=== PATIENT | male | born 1955 | race Hispanic/Latino ===

== ENCOUNTER 2016-11-06 10:33 | Emergency (ER) | payer MEDICAID ==
[2016-11-06 10:50] VITALS: BP 152/102
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
--- NOTE | 2016-11-10 00:42 | ED Elopement Review ---
ED Pt Elopement review - Call Back decision Pt Call Back Decision: Pt to F/U with PMD
== END 2016-11-06 11:00 | disposition left against medical advice (07) ==
LOC: ED 10:33
DX: S01.111A Laceration without foreign body of right eyelid and periocular area, initial encounter (principal); K21.9 Gastro-esophageal reflux disease without esophagitis; I10 Essential (primary) hypertension; F17.200 Nicotine dependence, unspecified, uncomplicated; Z53.21 Procedure and treatment not carried out due to patient leaving prior to being seen by health care provider; Y04.8XXA Assault by other bodily force, initial encounter; Y93.89 Activity, other specified; Y99.9 Unspecified external cause status; Y92.89 Other specified places as the place of occurrence of the external cause
CPT/HCPCS: 70450; 72125

== ENCOUNTER 2020-02-22 14:22 | Outpatient (CLI) | payer MEDICAID | END 2020-02-22 14:23 | disposition home or self-care (01) | LOC: LAB 14:22 | PROVIDERS: ATTEND Surgery | DX: L02.211 Cutaneous abscess of abdominal wall (principal) | CPT/HCPCS: 87075; 87076; 87116; 87186 ==

== ENCOUNTER 2020-04-24 03:13 | Emergency (ER) | payer MEDICAID ==
--- NOTE | 2020-04-24 03:26 | Event Note ---
ED Screening Note Date of service: 04/24/20 Time: 03:22 ED Screening Note: Pt is a 64 y/o male with hx of polysubstance abuse who presents via for complaint of chest pain 07/22 sharp ,pt states ETHOH tonight, he denies SI or HI, he advises that he is going to rehab tomoorw. This initial assessment/diagnostic orders/clinical plan/treatment(s) is/are subject to change based on patients health status, clinical progression and re- assessment by fellow clinical providers in the ED. Further treatment and workup at subsequent clinical providers discretion. Patient/guardian urged not to elope from the ED as their condition may be serious if not clinically assessed and managed. Initial orders include: ETOH, CBC, CMP, UA, UDS, EKG Tropf. cxr.
--- NOTE | 2020-04-24 03:54 | XRay Report ---
CHEST 2 VIEWS INDICATION / CLINICAL INFORMATION: chest pain. COMPARISON: 12/26/12 FINDINGS: SUPPORT DEVICES: None. HEART / MEDIASTINUM: No significant abnormality. LUNGS / PLEURA: No significant pulmonary or pleural abnormality. No pneumothorax. ADDITIONAL FINDINGS: No significant additional findings. IMPRESSION: 1. No acute findings. Signer Name: Beryl Bennett MD Signed: 04/24/2020 3:50 AM Workstation Name: [email or web address] [id number]
[2020-04-24 03:57] LABS: Basophils % (Auto) 0.7 % (0.0-1.8); Eosinophils # (Auto) 0.1 K/mm3 (0.0-0.4); Eosinophils % (Auto) 0.7 % (0.0-4.3); Hematocrit 48.1 % (35.5-45.6); Hemoglobin 16.9 gm/dl (11.8-15.2); Lymphocytes # (Auto) 1.8 K/mm3 (1.2-5.4); Lymphocytes % (Auto) 25.2 % (13.4-35.0); Mean Corpuscular HGB Conc 35 % (32-34); Mean Corpuscular Volume 90 fl (84-94); Monocytes # (Auto) 0.8 K/mm3 (0.0-0.8); Monocytes % (Auto) 10.9 % (0.0-7.3); Platelet Count 151 K/mm3 (140-440); Red Blood Count 5.33 M/mm3 (3.65-5.03); Red Cell Distribution Width 12.8 % (13.2-15.2)
[2020-04-24 04:47] LABS: Alanine Aminotransferase 53 units/L (7-56); Albumin 4.5 g/dL (3.9-5); BUN/Creatinine Ratio 14; Blood Urea Nitrogen 15 mg/dL (9-20); Calcium 9.7 mg/dL (8.4-10.2); Hemolysis Index 47
--- NOTE | 2020-04-24 06:33 | Emergency Department Report ---
ED Chest Pain HPI - General Chief Complaint: Chest Pain Stated Complaint: CHEST PAIN Time Seen by Provider: 04/24/20 06:28 Source: patient Mode of arrival: Ambulatory Limitations: No Limitations - History of Present Illness Initial Comments: This is a 64-year-old male with history of polysubstance abuse. He admits to having chest pain while smoking meth 2 days ago. He does not report any chest pain after that. He does not have chest pain at the time of my encounter or his arrival in the emergency department. He admits that he is here mainly because he wants medical clearance for detox. I suspect homelessness as well. Patient appears a bit shaky on my encounter. However he is oriented x4 with speech coherent and without neurological deficits. He has no other supplemental complaints. He essentially just wants to go to detox. Patient has no known history of coronary artery disease. He states that he previously was [facility]ed [facility] MD Complaint: chest pain -: days(s) (Days ago only while smoking meth) Quality: other (Did not describe) Consistency: now resolved Improves With: nothing Worsens With: other (Substance abuse) re: denies: nausea, vomting, diaphoresis, dyspnea Other Symptoms: denies: cough, fever, syncope Treatments Prior to Arrival: none - Related Data Previous Rx's Medication Instructions Recorded Last Taken Type Triamterene/Hydrochlorothiazid 1 each PO DAILY #30 capsule 04/24/20 Unknown Rx [Triamterene-Hctz 37.5-25 mg Cp] Allergies Allergy/AdvReac Type Severity Reaction Status Date / Time codeine Allergy Intermediate Nausea Verified 08/30/15 12:10 Heart Score - HEART Score History: Slightly suspicious EKG: Normal Age: 45-65 Risk factors: 1-2 risk factors Troponin: < normal limit HEART Score: 2 - Critical Actions Critical Actions: 0-3 pts:0.9-1.7%risk of adverse cardiac event.Candidate for discharge ED Review of Systems ROS: Stated complaint: CHEST PAIN Other details as noted in HPI Constitutional: denies: chills, fever Eyes: denies: eye pain, vision change ENT: denies: ear pain, throat pain Respiratory: denies: cough, shortness of breath, wheezing Cardiovascular: as per HPI, chest pain. denies: palpitations Endocrine: no symptoms reported Gastrointestinal: denies: abdominal pain, nausea, diarrhea Genitourinary: denies: urgency, dysuria Musculoskeletal: denies: back pain, joint swelling, arthralgia Skin: denies: rash, lesions Neurological: denies: headache, weakness, paresthesias Psychiatric: denies: anxiety, depression Hematological/Lymphatic: denies: easy bleeding, easy bruising ED Past Medical Hx - Past Medical History Previous Medical History?: Yes Hx Hypertension: Yes (NO MEDS) Hx Heart Attack/AMI: No Hx GERD: Yes Hx Liver Disease: No Hx Renal Disease: No Hx Asthma: No Hx COPD: Yes (NO MEDS) Hx Tuberculosis: Yes ([place] IN WITH PO MEDS) Additional medical history: scoleosis - Surgical History Hx Appendectomy: Yes Additional Surgical History: double hernia repair - Social History Smoking Status: Current Every Day Smoker Substance Use Type: Alcohol - Medications Home Medications: Home Medications Medication Instructions Recorded Confirmed Last Taken Type Triamterene/Hydrochlorothiazid 1 each PO DAILY #30 capsule 04/24/20 Unknown Rx [Triamterene-Hctz 37.5-25 mg Cp] ED Physical Exam - General Limitations: No Limitations General appearance: alert, in no apparent distress - Head Head exam: Present: atraumatic, normocephalic - Eye Eye exam: Present: normal appearance. Absent: scleral icterus - ENT ENT exam: Present: mucous membranes moist - Neck Neck exam: Present: normal inspection - Respiratory Respiratory exam: Present: normal lung sounds bilaterally. Absent: respiratory distress - Cardiovascular Cardiovascular Exam: Present: regular rate, normal rhythm. Absent: systolic murmur, diastolic murmur, rubs, gallop - GI/Abdominal GI/Abdominal exam: Present: soft, normal bowel sounds. Absent: distended, tenderness, guarding, rebound - Rectal Rectal exam: Present: deferred - Extremities Exam Extremities exam: Present: normal inspection - Back Exam Back exam: Present: normal inspection - Neurological Exam Neurological exam: Present: alert, oriented X3, CN II-XII intact. Absent: motor sensory deficit - Psychiatric Psychiatric exam: Present: normal affect, normal mood - Skin Skin exam: Present: warm, dry, intact, normal color. Absent: rash ED Course Vital Signs 04/24/20 04/24/20 04/24/20 03:20 06:33 07:12 Temperature 98.4 F 98.0 F Pulse Rate 64 65 68 Respiratory 18 17 20 Rate Blood Pressure 176/98 Blood Pressure 163/97 [Left] O2 Sat by Pulse 98 98 95 Oximetry 04/24/20 08:00 Temperature Pulse Rate 58 L Respiratory 11 L Rate Blood Pressure 158/96 Blood Pressure [Left] O2 Sat by Pulse 99 Oximetry - Reevaluation(s) Reevaluation #1: Blood pressure remained elevated but not in the range of acute treatment. Patient will be given a prescription for Dyazide. He was borderline bradycardic with mostly in the 50s. There is no indications for acute hospitalization. I spoke to the mental health counselor. They stated that he should be directed to [facility] which is nearby. He is medically clear for detox program 04/24/20 09:00 04/24/20 09:01 Reevaluation #2: Patient's shakiness totally resolved with 1 mg of Ativan p.o. He has no supplemental complaints. He is appropriate for discharge. 04/24/20 09:07 SERGEY score - Sergey Score Age > 65: (0) No Aspirin use within the Past 7 Days: (0) No 3 or more CAD Risk Factors: (0) No 2 or more Angina events in past 24 hrs: (0) No Known CAD with more than 50% Stenosis: (0) No Elevated Cardiac Markers: (0) No ST Deviation Greater than 0.5mm: (0) No SERGEY Score: 0 ED Medical Decision Making - Lab Data Result diagrams: 04/24/20 03:34 04/24/20 03:34 Laboratory Results - last 24 hr 04/24/20 04/24/20 04/24/20 03:34 03:34 03:34 WBC 7.1 RBC 5.33 H Hgb 16.9 H Hct 48.1 H MCV 90 MCH 32 MCHC 35 H RDW 12.8 L Plt Count 151 Lymph % (Auto) 25.2 [place] % (Auto) 10.9 H Eos % (Auto) 0.7 Baso % (Auto) 0.7 Lymph # (Auto) 1.8 [place] # (Auto) 0.8 Eos # (Auto) 0.1 Baso # (Auto) 0.0 Seg Neutrophils % 62.5 Seg Neutrophils # 4.5 Sodium 142 Potassium 4.0 Chloride 101.4 Carbon Dioxide 30 Anion Gap 15 BUN 15 Creatinine 1.1 Estimated GFR > 60 BUN/Creatinine Ratio 14 Glucose 100 Calcium 9.7 Total Bilirubin 0.90 AST 61 H ALT 53 Alkaline Phosphatase 91 Troponin T < 0.010 Total Protein 7.5 Albumin 4.5 Albumin/Globulin Ratio 1.5 Salicylates < 0.3 L Acetaminophen Plasma/Serum Alcohol 04/24/20 04/24/20 03:34 04:29 WBC RBC Hgb Hct MCV MCH MCHC RDW Plt Count Lymph % (Auto) [place] % (Auto) Eos % (Auto) Baso % (Auto) Lymph # (Auto) [place] # (Auto) Eos # (Auto) Baso # (Auto) Seg Neutrophils % Seg Neutrophils # Sodium Potassium Chloride Carbon Dioxide Anion Gap BUN Creatinine Estimated GFR BUN/Creatinine Ratio Glucose Calcium Total Bilirubin AST ALT Alkaline Phosphatase Troponin T Total Protein Albumin Albumin/Globulin Ratio Salicylates Acetaminophen 5.0 L Plasma/Serum Alcohol < 0.01 - EKG Data -: EKG Interpreted by Pa EKG shows normal: sinus rhythm, axis, intervals, QRS complexes, ST-T waves Rate: normal - EKG Data Interpretation: nonspecific ST-T wave adrienne No evidence of lateral infarct contrary to computerized interpretation. 04/24/20 06:32 - Radiology Data Radiology results: report reviewed (No acute process) Critical care attestation.: If time is entered above; I have spent that time in minutes in the direct care of this critically ill patient, excluding procedure time. ED Disposition Clinical Impression: Polysubstance abuse, Medical clearance for psychiatric admission, Atypical chest pain Hypertension Qualifiers: Hypertension type: unspecified Qualified Code(s): I10 - Essential (primary) hypertension Disposition: DC- TO HOME OR SELFCARE Is pt being admited?: No Does the pt Need Aspirin: No Condition: Stable Instructions: Chest Pain (ED), Substance Use Disorder, Nonspecific Chest Pain, Adult, [id number], Hypertension (ED) Additional Instructions: Return to the emergency department any acute change or problem. You may think detox at [facility]. Telephone number and address provided. You are being medically appropriate for detox program. Prescriptions: Triamterene/Hydrochlorothiazid [Triamterene-Hctz 37.5-25 mg Cp] 1 each PO DAILY #30 capsule Referrals: PRIMARY CARE, [Primary Care Provider] - 3-5 Days Time of Disposition: 09:03
[2020-04-24] MEDS ORDERED: LORazepam 1 MG TAB PO ONE (07:42)
[2020-04-24 08:02] LABS: Creatine Kinase MB 4.1 ng/mL (0.0-4.0)
[2020-04-24 09:22] VITALS: BP 153/92
== END 2020-04-24 09:24 | disposition home or self-care (01) ==
LOC: ED 03:13
DX: F19.10 Other psychoactive substance abuse, uncomplicated (principal); R07.89 Other chest pain; I10 Essential (primary) hypertension; Z04.6 Encounter for general psychiatric examination, requested by authority; K21.9 Gastro-esophageal reflux disease without esophagitis; J44.9 Chronic obstructive pulmonary disease, unspecified; F17.200 Nicotine dependence, unspecified, uncomplicated; Z90.49 Acquired absence of other specified parts of digestive tract; Z98.890 Other specified postprocedural states; Z79.899 Other long term (current) drug therapy; Z88.8 Allergy status to other drugs, medicaments and biological substances
CPT/HCPCS: 36415; 71046; 80053; 80320; 82550; 82553; 84484; 85025; 93005; G0480

== ENCOUNTER 2020-05-02 22:42 | Emergency (ER) | payer MEDICAID ==
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
[2020-05-02 23:33] LABS: Basophils % (Auto) 0.5 % (0.0-1.8); Eosinophils # (Auto) 0.2 K/mm3 (0.0-0.4); Eosinophils % (Auto) 2.9 % (0.0-4.3); Hemoglobin 15.6 gm/dl (11.8-15.2); Lymphocytes # (Auto) 1.9 K/mm3 (1.2-5.4); Lymphocytes % (Auto) 34.9 % (13.4-35.0); Mean Corpuscular HGB Conc 35 % (32-34); Mean Corpuscular Volume 90 fl (84-94); Monocytes # (Auto) 0.7 K/mm3 (0.0-0.8); Monocytes % (Auto) 12.8 % (0.0-7.3); Platelet Count 131 K/mm3 (140-440); Red Blood Count 4.98 M/mm3 (3.65-5.03); Red Cell Distribution Width 13.1 % (13.2-15.2)
[2020-05-03 00:03] LABS: Bilirubin,Urine NEG (Negative); Blood,Urine NEG (Negative); Color,Urine Yellow (Yellow); Mucus,Urine FEW /HPF; Protein,Urine <15 mg/dL mg/dL (Negative); RBC,Urine < 1.0 /HPF (0.0-6.0); WBC,Urine < 1.0 /HPF (0.0-6.0)
[2020-05-03] MEDS ORDERED: cloNIDine 0.1 MG TAB PO ONE ×2 (00:03→00:20)
--- NOTE | 2020-05-03 00:07 | Emergency Department Report ---
ED Psych HPI - General Chief Complaint: Medical Clearance Stated Complaint: DETOX Time Seen by Provider: 05/02/20 23:07 Source: patient Mode of arrival: Ambulatory - History of Present Illness Initial Comments: 64-year-old male with a past medical history of hypertension and COPD noncompliant with medications once again presents to the hospital requesting detox. Patient states he drinks 342 ounce beers daily with last drink this morning and abuses methamphetamine with last use this a.m. Patient was sleeping in the waiting room and continues to appear very sleepy here but is arousable by voice and mild tactile stimulation. Patient does not have any physical complaints and denies suicidal homicidal ideation. As per medical record review patient was here on April 24 with complaints of chest pain and then subsequently admitted that he wanted detox from alcohol and meth at that time as well. He was provided outpatient resources but states he has not followed up. Patient states he has been off of his BP medication for least 1 week - Related Data Previous Rx's Medication Instructions Recorded Last Taken Type Triamterene/Hydrochlorothiazid 1 each PO DAILY #30 capsule 05/03/20 Unknown Rx [Triamterene-Hctz 37.5-25 mg Cp] chlordiazePOXIDE [Librium] 25 mg PO Q6H #20 capsule 05/03/20 Unknown Rx Allergies Allergy/AdvReac Type Severity Reaction Status Date / Time codeine Allergy Intermediate Nausea Verified 08/30/15 12:10 ED Review of Systems ROS: Stated complaint: DETOX Other details as noted in HPI Comment: All other systems reviewed and negative ED Past Medical Hx - Past Medical History Previous Medical History?: Yes Hx Hypertension: Yes (NO MEDS) Hx Heart Attack/AMI: No Hx GERD: Yes Hx Liver Disease: No Hx Renal Disease: No Hx Asthma: No Hx COPD: Yes (NO MEDS) Hx Tuberculosis: Yes ([place] IN WITH PO MEDS) Additional medical history: scoleosis - Surgical History Past Surgical History?: Yes Hx Appendectomy: Yes Additional Surgical History: double hernia repair - Social History Smoking Status: Never Smoker Substance Use Type: Alcohol, Methamphetamines - Medications Home Medications: Home Medications Medication Instructions Recorded Confirmed Last Taken Type Triamterene/Hydrochlorothiazid 1 each PO DAILY #30 capsule 05/03/20 Unknown Rx [Triamterene-Hctz 37.5-25 mg Cp] chlordiazePOXIDE [Librium] 25 mg PO Q6H #20 capsule 05/03/20 Unknown Rx ED Physical Exam - General Limitations: No Limitations - Other Other exam information: General: No acute distress Head: Atraumatic Eyes: normal appearance ENT: Moist mucous membranes Neck: Normal appearance, no midline tenderness Chest: Clear to auscultation bilaterally CV: Regular rate and rhythm Abdomen: Soft, normal bowel sounds, nontender, nondistended, no rebound or guarding Back: Normal inspection Extremity: Normal inspection, full range of motion Neuro: Alert O x 3, no facial asymmetry, speech clear, no gross motor sensory deficit, no intention or resting tremor noted Psych: Appropriate behavior Skin: No rash ED Course Vital Signs 05/02/20 05/03/20 05/03/20 23:23 00:15 00:22 Temperature 97.9 F Pulse Rate 77 74 78 Respiratory 18 16 Rate Blood Pressure 189/130 Blood Pressure 171/108 189/130 [Left] O2 Sat by Pulse 97 97 Oximetry 05/03/20 01:15 Temperature 98.1 F Pulse Rate 78 Respiratory 18 Rate Blood Pressure Blood Pressure 163/96 [Left] O2 Sat by Pulse 97 Oximetry ED Medical Decision Making - Lab Data Result diagrams: 05/02/20 23:17 05/02/20 23:17 Lab Results 05/02/20 05/02/20 05/02/20 Range/Units 23:17 23:17 23:17 WBC 5.6 (4.5-11.0) K/mm3 RBC 4.98 (3.65-5.03) M/mm3 Hgb 15.6 H (11.8-15.2) gm/dl Hct 45.0 (35.5-45.6) % MCV 90 (84-94) fl MCH 31 (28-32) pg MCHC 35 H (32-34) % RDW 13.1 L (13.2-15.2) % Plt Count 131 L (140-440) K/mm3 Lymph % (Auto) 34.9 (13.4-35.0) % [place] % (Auto) 12.8 H (0.0-7.3) % Eos % (Auto) 2.9 (0.0-4.3) % Baso % (Auto) 0.5 (0.0-1.8) % Lymph # (Auto) 1.9 (1.2-5.4) K/mm3 [place] # (Auto) 0.7 (0.0-0.8) K/mm3 Eos # (Auto) 0.2 (0.0-0.4) K/mm3 Baso # (Auto) 0.0 (0.0-0.1) K/mm3 Seg Neutrophils % 48.9 (40.0-70.0) % Seg Neutrophils # 2.7 (1.8-7.7) K/mm3 Sodium (137-145) mmol/L Potassium (3.6-5.0) mmol/L Chloride (98-107) mmol/L Carbon Dioxide (22-30) mmol/L Anion Gap mmol/L BUN (9-20) mg/dL Creatinine (0.8-1.3) mg/dL Estimated GFR ml/min BUN/Creatinine Ratio % Glucose (75-100) mg/dL Calcium (8.4-10.2) mg/dL Total Bilirubin (0.1-1.2) mg/dL AST (5-40) units/L ALT (7-56) units/L Alkaline Phosphatase (35-129) units/L Total Protein (6.3-8.2) g/dL Albumin (3.9-5) g/dL Albumin/Globulin Ratio % Urine Color Yellow (Yellow) Urine Turbidity Clear (Clear) Urine pH 5.0 (5.0-7.0) Ur Specific [place] 1.020 (1.003-1.030) Urine Protein <15 mg/dl (Negative) mg/dL Urine Glucose (UA) Neg (Negative) mg/dL Urine Ketones Neg (Negative) mg/dL Urine Blood Neg (Negative) Urine Nitrite Neg (Negative) Urine Bilirubin Neg (Negative) Urine Urobilinogen 4.0 (<2.0) mg/dL Ur Leukocyte Esterase Neg (Negative) Urine WBC (Auto) < 1.0 (0.0-6.0) /HPF Urine RBC (Auto) < 1.0 (0.0-6.0) /HPF Urine Mucus Few /HPF Salicylates (2.8-20.0) mg/dL Urine Opiates Screen Presumptive negative Urine Methadone Screen Presumptive negative Acetaminophen (10.0-30.0) ug/mL Ur Barbiturates Screen Presumptive negative Ur Phencyclidine Scrn Presumptive negative Ur Amphetamines Screen Presumptive positive U Benzodiazepines Scrn Presumptive negative Urine Cocaine Screen Presumptive negative U Marijuana (THC) Screen Presumptive negative Drugs of Abuse Note Disclamer Plasma/Serum Alcohol (0-0.07) % 05/02/20 05/02/20 05/02/20 Range/Units 23:17 23:17 23:17 WBC (4.5-11.0) K/mm3 RBC (3.65-5.03) M/mm3 Hgb (11.8-15.2) gm/dl Hct (35.5-45.6) % MCV (84-94) fl MCH (28-32) pg MCHC (32-34) % RDW (13.2-15.2) % Plt Count (140-440) K/mm3 Lymph % (Auto) (13.4-35.0) % [place] % (Auto) (0.0-7.3) % Eos % (Auto) (0.0-4.3) % Baso % (Auto) (0.0-1.8) % Lymph # (Auto) (1.2-5.4) K/mm3 [place] # (Auto) (0.0-0.8) K/mm3 Eos # (Auto) (0.0-0.4) K/mm3 Baso # (Auto) (0.0-0.1) K/mm3 Seg Neutrophils % (40.0-70.0) % Seg Neutrophils # (1.8-7.7) K/mm3 Sodium 141 (137-145) mmol/L Potassium 4.1 (3.6-5.0) mmol/L Chloride 103.0 (98-107) mmol/L Carbon Dioxide 30 (22-30) mmol/L Anion Gap 12 mmol/L BUN 21 H (9-20) mg/dL Creatinine 1.1 (0.8-1.3) mg/dL Estimated GFR > 60 ml/min BUN/Creatinine Ratio 19 % Glucose 88 (75-100) mg/dL Calcium 9.3 (8.4-10.2) mg/dL Total Bilirubin 0.50 (0.1-1.2) mg/dL AST 52 H (5-40) units/L ALT 44 (7-56) units/L Alkaline Phosphatase 74 (35-129) units/L Total Protein 6.7 (6.3-8.2) g/dL Albumin 4.2 (3.9-5) g/dL Albumin/Globulin Ratio 1.7 % Urine Color (Yellow) Urine Turbidity (Clear) Urine pH (5.0-7.0) Ur Specific [place] (1.003-1.030) Urine Protein (Negative) mg/dL Urine Glucose (UA) (Negative) mg/dL Urine Ketones (Negative) mg/dL Urine Blood (Negative) Urine Nitrite (Negative) Urine Bilirubin (Negative) Urine Urobilinogen (<2.0) mg/dL Ur Leukocyte Esterase (Negative) Urine WBC (Auto) (0.0-6.0) /HPF Urine RBC (Auto) (0.0-6.0) /HPF Urine Mucus /HPF Salicylates < 0.3 L (2.8-20.0) mg/dL Urine Opiates Screen Urine Methadone Screen Acetaminophen 5.0 L (10.0-30.0) ug/mL Ur Barbiturates Screen Ur Phencyclidine Scrn Ur Amphetamines Screen U Benzodiazepines Scrn Urine Cocaine Screen U Marijuana (THC) Screen Drugs of Abuse Note Plasma/Serum Alcohol (0-0.07) % 05/02/20 Range/Units 23:17 WBC (4.5-11.0) K/mm3 RBC (3.65-5.03) M/mm3 Hgb (11.8-15.2) gm/dl Hct (35.5-45.6) % MCV (84-94) fl MCH (28-32) pg MCHC (32-34) % RDW (13.2-15.2) % Plt Count (140-440) K/mm3 Lymph % (Auto) (13.4-35.0) % [place] % (Auto) (0.0-7.3) % Eos % (Auto) (0.0-4.3) % Baso % (Auto) (0.0-1.8) % Lymph # (Auto) (1.2-5.4) K/mm3 [place] # (Auto) (0.0-0.8) K/mm3 Eos # (Auto) (0.0-0.4) K/mm3 Baso # (Auto) (0.0-0.1) K/mm3 Seg Neutrophils % (40.0-70.0) % Seg Neutrophils # (1.8-7.7) K/mm3 Sodium (137-145) mmol/L Potassium (3.6-5.0) mmol/L Chloride (98-107) mmol/L Carbon Dioxide (22-30) mmol/L Anion Gap mmol/L BUN (9-20) mg/dL Creatinine (0.8-1.3) mg/dL Estimated GFR ml/min BUN/Creatinine Ratio % Glucose (75-100) mg/dL Calcium (8.4-10.2) mg/dL Total Bilirubin (0.1-1.2) mg/dL AST (5-40) units/L ALT (7-56) units/L Alkaline Phosphatase (35-129) units/L Total Protein (6.3-8.2) g/dL Albumin (3.9-5) g/dL Albumin/Globulin Ratio % Urine Color (Yellow) Urine Turbidity (Clear) Urine pH (5.0-7.0) Ur Specific [place] (1.003-1.030) Urine Protein (Negative) mg/dL Urine Glucose (UA) (Negative) mg/dL Urine Ketones (Negative) mg/dL Urine Blood (Negative) Urine Nitrite (Negative) Urine Bilirubin (Negative) Urine Urobilinogen (<2.0) mg/dL Ur Leukocyte Esterase (Negative) Urine WBC (Auto) (0.0-6.0) /HPF Urine RBC (Auto) (0.0-6.0) /HPF Urine Mucus /HPF Salicylates (2.8-20.0) mg/dL Urine Opiates Screen Urine Methadone Screen Acetaminophen (10.0-30.0) ug/mL Ur Barbiturates Screen Ur Phencyclidine Scrn Ur Amphetamines Screen U Benzodiazepines Scrn Urine Cocaine Screen U Marijuana (THC) Screen Drugs of Abuse Note Plasma/Serum Alcohol < 0.01 (0-0.07) % - Medical Decision Making 64-year-old male with alcohol and methamphetamine abuse presents to the hospital requesting detox. At time of ED evaluation he does not have a resting tremor or tachycardia or cardiac instability suggestive of acute alcohol withdrawal tremors or delirium. Patient was noted to be hypertensive but reports history of the same and has been noncompliant with his BP medications. BP was treated with clonidine with improvement prior to d/c and blood pressure medication will be re-prescribed. Patient was prescribed a refill in his medication on 04/24/2020 however, it is unclear why he has not taken his medication or if he filled this medication. pt provided substance treatment resources sheet Critical Care Time: No Critical care attestation.: If time is entered above; I have spent that time in minutes in the direct care of this critically ill patient, excluding procedure time. ED Disposition Clinical Impression: Alcohol abuse, Amphetamine abuse, Chronic hypertension, Noncompliance with medication regimen Disposition: TO HOME OR SELFCARE Condition: Stable Instructions: Amphetamines Use Disorder, Alcohol Abuse and Dependence Information, Adult, Hypertension, Adult, [id number], Hypertension (ED) Additional Instructions: Take the recently prescribed blood pressure medication as directed. An refill has been provided. Take Librium taper as needed for alcohol withdrawal. Do not take Librium and drink at the same time. Follow-up with your doctor or doctor/clinic provided. Return if symptoms worsen as indicated by your discharge instructions. Please refer to substance abuse resource sheet for substance abuse treatment Prescriptions: chlordiazePOXIDE [Librium] 25 mg PO Q6H #20 capsule Triamterene/Hydrochlorothiazid [Triamterene-Hctz 37.5-25 mg Cp] 1 each PO DAILY #30 capsule Referrals: PRIMARY CAREMD [Primary Care Provider] [facility] - [facility] Days MD Tariq [Other] - 3-5 Days Time of Disposition: 01:18
[2020-05-03 00:10] LABS: Amphetamine Screen,Urine PRESUMPTIVE POSITIVE; Benzodiazepines Screen,Urine PRESUMPTIVE NEGATIVE; Cannabinoid Screen,Urine PRESUMPTIVE NEGATIVE; Cocaine Screen,Urine PRESUMPTIVE NEGATIVE; Methadone Screen,Urine PRESUMPTIVE NEGATIVE; Opiate Screen,Urine PRESUMPTIVE NEGATIVE
[2020-05-03 00:14] LABS: Alanine Aminotransferase 44 units/L (7-56); Albumin 4.2 g/dL (3.9-5); BUN/Creatinine Ratio 19; Blood Urea Nitrogen 21 mg/dL (9-20); Calcium 9.3 mg/dL (8.4-10.2); Hemolysis Index 3
[2020-05-03 01:16] VITALS: BP 163/96
== END 2020-05-03 01:42 | disposition home or self-care (01) ==
LOC: ED 22:42
DX: F15.10 Other stimulant abuse, uncomplicated (principal); F10.10 Alcohol abuse, uncomplicated; I10 Essential (primary) hypertension; Z91.14 Patient's other noncompliance with medication regimen; K21.9 Gastro-esophageal reflux disease without esophagitis; J44.9 Chronic obstructive pulmonary disease, unspecified; Z86.11 Personal history of tuberculosis; Z90.49 Acquired absence of other specified parts of digestive tract; Z98.890 Other specified postprocedural states; Z79.899 Other long term (current) drug therapy; Z88.8 Allergy status to other drugs, medicaments and biological substances
CPT/HCPCS: 36415; 80053; 80307; 80320; 81001; 85025; G0480